=== PATIENT | female | born 1960 | race Caucasian/White ===

== ENCOUNTER 2017-05-04 12:01 | Inpatient (IN) | payer OTHER ==
[~2017-05-04] VITALS: Ht 162.6 cm; Wt 90.7 kg
[2017-05-04] MEDS ORDERED: ZOLOFT100 MG PO (12:49)
[2017-05-04] MEDS ORDERED: LIPITOR40 MG PO (12:50)
[2017-05-04] MEDS ORDERED: RESTORIL30 M1 PO (12:50)
[2017-05-04] MEDS ORDERED: ZESTORETIC 10-1 EACH PO (12:50)
[2017-05-04] MEDS ORDERED: PRILOSEC OTC20 MG PO (12:51)
[2017-05-04] MEDS ORDERED: PLETAL PO (12:51)
[2017-05-04] MEDS ORDERED: ZANTAC300 MG PO (12:51)
[2017-05-04] MEDS ORDERED: NORFLEX PO (12:52)
[2017-05-04] MEDS ORDERED: CATAFLAN PO (12:52)
[2017-05-04] MEDS ORDERED: XANAX2 MG PO (12:53)
== END 2017-05-07 18:24 | DRG 735 ==
LOC: OB/GYN 05-06 05:15 → O/R 05-06 05:15 → OB/GYN 05-06 15:26 → SURG-SUITE 05-06 12:15
PROVIDERS: Obstetrics & Gynecology Gynecologic Oncology
PROC: 07TC4ZZ Resection of Pelvis Lymphatic, Percutaneous Endoscopic Approach (ICD-10-PCS; 2017-05-06)
PROC: 0UT74ZZ Resection of Bilateral Fallopian Tubes, Percutaneous Endoscopic Approach (ICD-10-PCS; 2017-05-06)
PROC: 0UT24ZZ Resection of Bilateral Ovaries, Percutaneous Endoscopic Approach (ICD-10-PCS; 2017-05-06)
PROC: 0UT94ZZ Resection of Uterus, Percutaneous Endoscopic Approach (ICD-10-PCS; principal; 2017-05-06 17:00)
DX: C54.1 Malignant neoplasm of endometrium (principal); D27.1 Benign neoplasm of left ovary; N72 Inflammatory disease of cervix uteri